=== PATIENT | female | born 2000 | race Caucasian/White ===

== ENCOUNTER → 2021-10-13 | Outpatient (REF) | payer BC | LOC: M LAB REF 12:22 | PROVIDERS: ATTEND Internal Medicine Gastroenterology | DX: K52.9 Noninfective gastroenteritis and colitis, unspecified (principal) ==

== ENCOUNTER → 2021-10-14 | Outpatient (CLI) | payer BC | LOC: M LAB 11:25 | PROVIDERS: ATTEND Internal Medicine Gastroenterology | DX: K52.9 Noninfective gastroenteritis and colitis, unspecified (principal) ==